=== PATIENT | female | born 1950 | race Caucasian/White ===

== ENCOUNTER 2018-09-24 09:22 | Day surgery (SDC) | payer OTHER ==
[2018-09-10 16:01] VITALS: BMI 26.5
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
[2018-09-24] MEDS ORDERED: PROPOFOL 20 ML ONE (14:07)
[2018-09-24] MEDS ORDERED: MIDAZOLAM HCL 2 MG/2 ML SINGLE DOSE VIAL ONE (14:08)
[2018-09-24] MEDS ORDERED: KETOROLAC TROMETHAMINE 30 MG/1 ML VIAL IVPUSH PRN (14:15)
[2018-09-24] MEDS ORDERED: DEXTROSE 5%-0.45% SALINE 1,000 ML IV SCH (14:15)
[2018-09-24] MEDS ORDERED: ONDANSETRON 4 MG/2 ML VIAL IVPUSH PRN ×2 (14:15→17:29)
[2018-09-24] MEDS ORDERED: BUPIVACAINE HCL/PF 2.5 MG/ML - 30 ML VIAL IJ ONE (14:38)
[2018-09-24] MEDS ORDERED: ISOSULFAN BLUE 10 MG/ML VIAL SQ ONE (14:38)
[2018-09-24] MEDS ORDERED: ONDANSETRON 4 MG/2 ML VIAL ONE (15:03)
[2018-09-24] MEDS ORDERED: ceFAZolin SODIUM 1 GM VIAL ONE (15:03)
[2018-09-24] MEDS ORDERED: DEXAMETHASONE SOD PHOSPHATE 4 MG/1 ML VIAL ONE (15:03)
[2018-09-24] MEDS ORDERED: ePHEDrine SULFATE 50 MG/1 ML AMPULE ONE (15:29)
[2018-09-24] MEDS ORDERED: BUPIVACAINE HCL/PF 0.25% (2.5MG/ML) 10 ML VIAL IJ ONE (17:04)
[2018-09-24] MEDS ORDERED: PROMETHAZINE HCL 25 MG/1 ML VIAL IVPUSH PRN (17:29)
[2018-09-24] MEDS ORDERED: oxyCODONE HCL 5 MG TABLET PO PRN ×2 (17:29)
[2018-09-24] MEDS ORDERED: LACTATED RINGERS SOLUTION 1,000 ML IV SCH (17:30)
[2018-09-24 19:48] VITALS: BP 131/72; PULSE 80; TEMP 98
--- NOTE | 2018-09-24 23:56 | OP ---
DATE OF OPERATION: 09/24/2018 PREOPERATIVE DIAGNOSIS: Right breast cancer. POSTOPERATIVE DIAGNOSIS: Right breast cancer. PROCEDURE: Right breast partial mastectomy, sentinel node biopsy, intraoperative radiation, and complex tissue transfer. ANESTHESIA: General, intubated. ATTENDING SURGEON: Doyle Stapleton MD BULK RECEIVER: MANDO Lofton ESTIMATED BLOOD LOSS: Minimal. COMPLICATIONS: None. PROCEDURE: The patient was made aware of the risks and benefits of the procedure and consented. Preoperatively, the patient went to the radiology suite, where a needle and wire were placed next to the index lesion, followed by nuclear medicine, where a radioactive tracer was injected into the peritumor tissues. The patient was then placed in the supine position on the operating room table and, after general anesthesia was induced, the patient was intubated. Then, 2.0 mL of isosulfan blue were locally infiltrated into the right breast. The operative site was then prepped and draped in the usual sterile fashion. After waiting at least 10 minutes, with gentle manual compression, a curvilinear incision was made in the right axilla. Using electrocautery and sharp dissection, the axillary fat was identified and multiple blue and hot lymph nodes were identified and surgically excised and submitted to pathology. Interrogation of the rest of the axilla with palpation and the navigator revealed no other suspicious areas. The wound was then closed with deep 3-0 Vicryl, followed by a running subcuticular 4-0 Monocryl. The breast was then approached. A radial incision was made at 9 o'clock. Using electrocautery, a thick skin flap was made. The needle was withdrawn through the puncture site and the wire. The blunt tissues surrounding the wire were then sharply excised and submitted with a short suture superior, long suture lateral. Specimen radiograph confirmed the presence of the index lesion. Additional margins were taken superior, inferior, medial, lateral, with deep and anterior with clips at the new margin. The wound was copiously irrigated with normal saline. Hemostasis maintained with electrocautery. A 4.5-cm probe was then placed into the cavity and a tissue boot wrapped around the probe with a No. 1 Vicryl pursestring suture. Intraoperative radiation revealed that all of the distances from skin to probe were greater than 10 mm. The skin was protected by saline-soaked gauze and a radiopaque material was placed over the chest wall. The patient underwent approximately 37 minutes of intraoperative radiation, after which the probe and gauze and suture were removed. Using electrocautery, tissue flaps were made by taking the breast tissue off the pectoralis muscle and rotating it into the cavity, which was then closed with multiple layers of [id number] suture of 2-0 Vicryl. The skin was then closed with deep 3-0 Vicryl, followed by a running subcuticular 4-0 Monocryl. Steri-Strips, sterile dressing, and a compression bra were then applied. The patient, having tolerated the procedure well, was transferred to the recovery room in excellent condition. DOYLE STAPLETON M.D. [id number]
--- NOTE | 2018-09-25 11:10 | OP ---
DATE OF OPERATION: 09/24/2018 LOCATION: [facility] PREOPERATIVE DIAGNOSIS: Right breast cancer. POSTOPERATIVE DIAGNOSIS: Right breast cancer. PROCEDURE: Post lumpectomy intraoperative radiation therapy for right breast cancer. ATTENDING SURGEON: Rafia Stapleton MD REPEAT PHOTOCOMPOSING MACHINE OPERATOR/RADIATION ONCOLOGIST: Chloe Carias MD ANESTHESIA: General. COMPLICATIONS: None. INDICATIONS: Patient is a 68-year-old woman with a biopsy-proven clinical stage 1A invasive ductal carcinoma of the right breast who has elected to proceed with breast conservation therapy with intraoperative radiation therapy on the [facility] registry. PROCEDURE: Dr. Stapleton performed right lumpectomy and sentinel lymph node biopsy which he has dictated. After excision of additional margins, the lumpectomy cavity was prepared and sized with a 4.5 cm diameter spherical applicator that was placed in the 9 o'clock aspect of the right breast. The applicator was placed into the surgical cavity with the surrounding breast tissues cinched around the applicator with a Vicryl pursestring suture. I performed a clinical and ultrasound simulation to ensure that the applicator was located within the operative bed with close apposition of the surrounding breast tissue to the surface of the applicator. We ensured an adequate distance between the applicator and chest wall as well as between the applicator and skin with a minimum ultrasound measured distance of 1.4 cm at the 3 o'clock aspect of the applicator. Saline-soaked gauze was placed between the skin and breast tissue to optimize the separation. Shielding material was placed over the breast to reduce scatter radiation. The patient received a total dose of 20 Gy prescribed to 0 mm from the applicator surface with 50 kV x-rays using the Intrabeam System. Prior to treatment, the system was double checked with appropriate physics air quality instrument specialist measures. The total time required for the treatment was 36 minutes 20 seconds at a dose rate of 0.548 Gy per minute. When the treatment was completed , survey of the patient and room confirmed that the Intrabeam Source was off. There were no complications or unplanned interruptions. Dr. Stapleton's team removed the radiation applicator from the patient and completed the surgery. The patient will be discharged to the recovery room following the surgery. CHLOE CARIAS M.D. NADIA/[id number] [facility]
--- NOTE | 2018-09-30 10:23 | PATH ---
Surgical Pathology Report Patient Name: DARRYL GA [facility]. Rec. #: [id number] /Age/Gender: 1950 (Age: 68) / F Account: [id number] Location: [facility] Taken: 09/24/2018 Received: 09/24/2018 Reported: 09/30/2018 Physicians: Rafia Stapleton M.D. Specimen(s) Received A: RIGHT AXILLARY SENTINEL NODES B: RIGHT BREAST WIDE EXCISION C: RIGHT BREAST MEDIAL MARGIN D: RIGHT BREAST LATERAL MARGIN E: RIGHT BREAST SUPERIOR MARGIN F: RIGHT BREAST INFERIOR MARGIN G: RIGHT BREAST POSTERIOR MARGIN H: RIGHT BREAST ANTERIOR MARGIN Clinical History Invasive Ca Final Diagnosis A. LYMPH NODES, RIGHT AXILLARY SENTINEL, EXCISION: METASTATIC CARCINOMA, INVOLVING ONE OF THREE LYMPH NODES (1/3); THE FOCUS OF METASTATIC CARCINOMA MEASURES 0.5 MM IN GREATEST DIMENSION (MICROMETASTASIS). NO EXTRANODAL EXTENSION IS IDENTIFIED. B. BREAST, RIGHT, WIDE EXCISION: INVASIVE DUCTAL CARCINOMA, WELL DIFFERENTIATED (TUBULE SCORE: 2/3, NUCLEAR GRADE: 2/3, MITOTIC SCORE: 1/3, TOTAL SCORE: 5/9; ERROL GRADE 1), MEASURING 0.5 CM IN GREATEST DIMENSION, MICROSCOPICALLY. FOCAL DUCTAL CARCINOMA IN SITU (DCIS), CRIBRIFORM TYPE, INTERMEDIATE NUCLEAR GRADE WITH MODERATE NECROSIS. SURGICAL MARGINS ARE UNINVOLVED BY CARCINOMA; INVASIVE CARCINOMA IS AT 4 MM FROM THE CLOSEST (SUPERIOR) MARGIN AND THE DCIS IS AT 2 MM FROM THE CLOSEST (SUPERIOR) MARGIN. SEE SPECIMEN C-H FOR FINAL MARGINS. NO LYMPHOVASCULAR INVASION IS IDENTIFIED. CALCIFICATIONS ARE NOTED IN ASSOCIATION WITH INVASIVE CARCINOMA, DCIS AND BENIGN GLANDULAR PARENCHYMA. PRIOR BIOPSY SITE CHANGES ARE IDENTIFIED. PATHOLOGIC STAGE (pTNM): pT1a pN1mi. SEE ALSO INVASIVE CARCINOMA CASE SUMMARY BELOW. C. BREAST, RIGHT, MEDIAL MARGIN, EXCISION: BENIGN BREAST TISSUE. D. BREAST, RIGHT, LATERAL MARGIN, EXCISION: BENIGN BREAST TISSUE. E. BREAST, RIGHT, SUPERIOR MARGIN, EXCISION: BENIGN BREAST TISSUE. F. BREAST, RIGHT, INFERIOR MARGIN, EXCISION: BENIGN BREAST TISSUE. G. BREAST, RIGHT, POSTERIOR MARGIN, EXCISION: BENIGN BREAST TISSUE. H. BREAST, RIGHT, INFERIOR MARGIN, EXCISION: BENIGN BREAST TISSUE. Comments Breast Invasive Carcinoma: Surgical Pathology Case Summary (Based on AJCC TNM 8 th edition) Procedure _X_ Excision (less than total mastectomy) Specimen Laterality _X_ Right Tumor Size _X_ Greatest dimension of largest invasive focus >1 mm (millimeters): 5 mm Histologic Type _X_ Invasive carcinoma of no special type (ductal, not otherwise specified) Histologic Grade (Liberty Histologic Score) Glandular (Acinar)/Tubular Differentiation _X_ Score 2 (10% to 75% of tumor area forming glandular/tubular structures) Nuclear Pleomorphism _X_ Score 2 Mitotic Rate _X_ Score 1 Overall Grade _X_ Grade 1 (scores of 3, 4, or 5) Tumor Focality _X_ Single focus of invasive carcinoma Ductal Carcinoma In Situ (DCIS) _X_ DCIS is present in specimen _X_ Negative for extensive intraductal component (EIC) Margins Invasive Carcinoma Margins _X_ Uninvolved by invasive carcinoma Distance from closest margin (millimeters): 4 mm from superior margin in wide excision B. Final superior margin E is negative for carcinoma. DCIS Margins _X_ Uninvolved by DCIS Distance from closest margin (millimeters): 2 mm from superior margin in wide excision B. Final superior margin E is negative for DCIS. Regional Lymph Nodes Number of Lymph Nodes with Macrometastases (>2 mm): 0 Number of Lymph Nodes with Micrometastases (>0.2 mm to 2 mm and/or >200 cells): 1 Number of Lymph Nodes with Isolated Tumor Cells (=0.2 mm and =200 cells):0 Size of Largest Metastatic Deposit (millimeters): 0.5 mm Extranodal Extension: _X_ Not identified Number of Lymph Nodes Examined: 3 Number of [place] Nodes Examined :3 Treatment Effect _X_ No known presurgical therapy Lymphovascular Invasion _X_ Not identified Pathologic Stage Classification (pTNM, AJCC 8th Edition) Primary Tumor (Invasive Carcinoma) (pT) _X_ pT1a: Tumor >1 mm but =5 mm in greatest dimension (round any measurement >1.0-1.9mm to 2 mm) Regional Lymph Nodes (pN) Category (pN) _X_ pN1mi: Micrometastases (approximately 200 cells, larger than 0.2 mm, but none larger than 2.0 mm Biomarker Studies Results of ER and MO studies performed on this specimen (block B1) at [facility] are as follows: ER (clone [id number] mouse monoclonal antibody by [employer]) : >95 % nuclear staining with strong intensity (Positive). MO (clone16 mouse monoclonal antibody by [employer]): ~80 % nuclear staining with moderate intensity (Positive). Results of Her2 and Ki67 studies will be reported separately in an addendum. Positive and negative controls (internal if applicable) show appropriate results. Formalin fixation and cold ischemic times are within current ASCO/CAP recommendations for ER, MO and Her2 testing. Electronically Signed Yudith Kulkarni M.D. Addendum Reported: 10/02/2018 Addendum Diagnosis Results of Her2 (IHC) & Ki-67 studies performed on block B1 at [place], [place] ([id number]) are as follows: Her2 IHC (EP3 from [employer], formerly known as [id number], using [employer] Polymer Refine detection kit):0 (Negative). Ki-67: 5-7% (low proliferative index). Positive and negative controls (internal if applicable) show appropriate results. Yudith Kulkarni M.D. Gross Description A. Received in formalin labeled "right axillary sentinel nodes," are 3 eden lymph nodes ranging from 0.5-1.2 cm in greatest dimension. The lymph nodes are entirely submitted in 2 cassettes as follows: 1-two whole lymph nodes; 2-one bisected lymph node. B. Received in formalin, labeled "right breast wide excision," is a 4.0 x 3.1 x 2.6 cm. eden-yellow, irregular, portion of fibroadipose tissue. There is a needle localization wire separately received within the same container which appears to have detached from the specimen. There is a short suture marking the superior aspect and a long suture marking the lateral aspect, per the surgeon. There is no skin present. The specimen is inked as follows: superior and lateral blue; inferior green; medial yellow; anterior red; deep black. The specimen is serially sectioned from superior to inferior. Sectioning reveals a 0.7 x 0.6 x 0.5 cm eden, indurated, ill-defined mass. The mass is 0.2 cm from the deep margin, 0.4 cm from the anterior margin, 0.5 cm from the medial and lateral margins. Phosphatic Fertilizer Supervisor sections are submitted in 4 cassettes as follows: 1-full-face section of mass with medial, lateral, anterior and deep margins; 2-additional mass with medial, lateral, anterior and deep margins; 3-superior margin; 4-inferior margin. Time to formalin fixation: 14 minutes Total formalin fixation time: Approximately 26 hours. C. Received in formalin labeled "right breast medial margin," is a 3.3 x 1.5 x 0.4 cm portion of fibroadipose tissue with a clip marking the new margin, per the surgeon. The new margin is inked blue and the specimen is serially sectioned. The specimen is entirely submitted in 3 cassettes. D. Received in formalin labeled "right breast lateral margin," is a 2.3 x 1.8 x 0.5 cm portion of fibroadipose tissue with a clip marking the new margin, per the surgeon. The new margin is inked blue and the specimen is serially sectioned. The specimen is entirely submitted in 3 cassettes. E. Received in formalin labeled "right breast superior margin," is a 2.7 x 2.5 x 0.9 cm portion of fibroadipose tissue with a clip marking the new margin, per the surgeon. The new margin is inked blue and the specimen is serially sectioned. The specimen is entirely submitted in 3 cassettes. F. Received in formalin labeled "right breast inferior margin," is a 1.5 x 0.8 x 0.4 cm portion of fibroadipose tissue with a clip marking the new margin, from the surgeon. The new margin is inked blue and the specimen is serially sectioned. The specimen is entirely submitted in 2 cassettes. G. Received in formalin labeled "right breast posterior margin," is a 2.7 x 2.0 x 0.6 cm portion of fibroadipose tissue with a clip marking the new margin, per the surgeon. The new margin is inked blue and the specimen is serially sectioned. The specimen is entirely submitted in 3 cassettes. H. Received in formalin labeled "right breast anterior margin," is a 2.8 x 2.3 x 0.8 cm portion of fibroadipose tissue with a clip marking the new margin, per the surgeon. The new margin is inked blue and the specimen is serially sectioned. The specimen is entirely and sequentially submitted in 4 cassettes. 09/25/201809/25/2018
== END 2018-09-24 19:48 | disposition home or self-care (01) ==
LOC: FASU 09:22
PROVIDERS: ATTEND Surgery Surgical Oncology
PROC: 0HBT0ZZ Excision of Right Breast, Open Approach (ICD-10-PCS; principal; 2018-09-24 14:00)
PROC: [UNRECOGNIZED PROCEDURE] (2018-09-24 14:00)
DX: C50.411 Malignant neoplasm of upper-outer quadrant of right female breast (principal); Z17.0 Estrogen receptor positive status [ER+]; I10 Essential (primary) hypertension; E78.5 Hyperlipidemia, unspecified; K21.9 Gastro-esophageal reflux disease without esophagitis; Z87.891 Personal history of nicotine dependence
CPT/HCPCS: 19281; 76641-TC-50; 77290; 77300; 77316; 77332; 77370-TC; 77424; 78195-TC; 88307-TC; 88342-TC; 94760; A9541; C9726